=== PATIENT | male | born 1985 | race Caucasian/White ===

== ENCOUNTER 2022-12-19 08:25 | Emergency (ER) | payer OTHER, SELFPAY ==
[2022-12-19 08:38] VITALS: BP 194/118; PULSE 116; TEMP 37; O2SAT 98; BMI 27.9
[2022-12-19] MEDS: cephALEXin 500 MG CAPSULE PO (09:19)
[2022-12-19] MEDS: ACETAMINOPHEN 500 MG TABLET 1000 MG PO (09:19)
[2022-12-19 11:52] VITALS: BP 176/105; PULSE 117; RESP 20; TEMP 36.7; O2SAT 98
--- NOTE | 2022-12-19 11:53 | ED.NURSE ---
Wound dressed with bacitracin, telfa and 4x4s. Dressing supplies sent with pt. [facility] will call pt with appointment time for surgery follow up.
--- NOTE | 2022-12-19 16:11 | ED.SKABFB ---
HPI - Skin/Abscess/Foreign Bdy General Date Seen: 12/19/22 Chief complaint: Skin/Abscess/Foreign Body Stated complaint: Needs cyst on tailbone lanced Time Seen by Provider: 12/19/22 08:27 Source: patient Mode of arrival: ambulatory Limitations: no limitations History of Present Illness HPI narrative: Patient is a very nice 37-year-old gentleman who presents here with the pilonidal cyst, he has had this before, it is before been drained. He has had increasing over the last 3-5 days, although it is not as bad as he normally gets numb. Denies any problems with bowel movements, no redness, no other issues associated with this. He denies a history of immunosuppressive diseases, any allergies. complaint: laceration Onset (ago): day(s) Tetanus up to date: yes Severity: moderate Relieving factors: none Exacerbating factors: none Associated symptoms: denies other symptoms Treatments prior to arrival: none Related Data Home Medications Medication Instructions Recorded Confirmed amlodipine 10 mg tablet mg 12/19/22 lisinopril 40 mg tablet mg 12/19/22 potassium chloride 8 mEq meq 12/19/22 capsule,extended release Allergies Allergy/AdvReac Type Severity Reaction Status Date / Time No Known Drug Allergies Allergy Verified 12/19/22 08:41 Review of Systems Status of ROS: Reports: 10 or more systems reviewed and unremarkable except as noted in History and below PFSH PFS Social History Smoking Status: Never smoker Do you use any of these nicotine containing products: None Second hand tobacco smoke exposure: No How often do you have a drink containing alcohol: 2-3 times a week How many standard drinks containing alcohol do you have on a typical day: 3 or 4 AUDIT-C Alcohol total score: 4 Non-prescribed substance use: denies use Exam Narrative: Exam Narrative: Patient is seen in room 2, no apparent distress, he clearly has a pilonidal cyst on the right side of his gluteal cleft. The scar from previous surgery, I discussed with him, the treatment I would recommend at this point incision drainage and packing, with half-inch regular gauze. 1% xylocaine with epinephrine was infiltrated time 6 mL, this resulted in good anesthesia, cleaned with Hibiclens, I was able to make approximately a cm and half incision, and then I was able to dissect down, to leg at approximately 3-5 mL of pus, little bit less than I thought I would get. And then was packed with some gauze. Bacitracin dry dressing, I did speak to Dr. Matta from General surgery, she will see the patient in follow-up on Sunday, he would likely need a incision, and marsupialization of this in the future. Const: Vital Signs, click to edit/add: Vital Signs - 24 hr 12/19/22 08:38 12/19/22 11:52 Temperature 98.6 F 98.1 F Pulse Rate [Pulse Oximeter] 116 H 117 H Respiratory Rate 20 Blood Pressure [Ri ght Upper Arm] 194/118 H 176/105 H Pulse Oximetry 98 98 Oxygen Delivery Me thod Room Air Documenting provider has reviewed patient's vital signs: yes Course Vital Signs Vital signs: Initial Vital Signs Temperature 98.6 F 12/19/22 08:38 Temperature Source Temporal Artery Scan 12/19/22 08:38 Pulse Rate 116 H 12/19/22 08:38 Blood Pressure 194/118 H 12/19/22 08:38 Blood Pressure Mean 143 12/19/22 08:38 Blood Pressure Position Sitting 12/19/22 08:38 Pulse Oximetry 98 12/19/22 08:38 Oxygen Delivery Method 12/19/22 08:38 Vital Signs Temperature 98.6 F 12/19/22 08:38 Pulse Rate 116 H 12/19/22 08:38 Blood Pressure 194/118 H 12/19/22 08:38 Pulse Oximetry 98 12/19/22 08:38 Oxygen Delivery Method 12/19/22 08:38 Temperature 98.1 F 12/19/22 11:52 Pulse Rate 117 H 12/19/22 11:52 Respiratory Rate 20 12/19/22 11:52 Blood Pressure 176/105 H 12/19/22 11:52 Pulse Oximetry 98 12/19/22 11:52 Oxygen Delivery Method 12/19/22 08:38 Discharge Plan Discharge Clinical Impression: Cyst, pilonidal, with abscess Patient Disposition: Home w/ Parent or Adult Condition: Improved Instructions: Pilonidal Cyst (ED), Sitz Bath (DC), Abscess Follow-up (ED) Additional Instructions: Home rest off work for couple days, Sitz baths at home at least 3-4 times, follow-up with general surgery in 24-48 hours for a recheck. Recommend antibiotics and pain medication, a formal excision will need to be done of this to avoid recurrent issues. Advanced the packing 1 inch a day. Prescriptions: No Action potassium chloride 8 mEq capsule, extended release amlodipine 10 mg tablet lisinopril 40 mg tablet Follow Up/Referrals: Delfina Matta MD [Staff Physician] - Rajan Rodriguez MD [Primary Care Provider] - Destinee Murrieta MD [Staff Physician] - Stand Alone Forms: [employer] Info Instructions
== END 2022-12-19 11:55 | disposition home or self-care (01) ==
PROVIDERS: Emergency Provider Family Medicine; PCP Family Medicine
DX: L05.01 Pilonidal cyst with abscess (principal)
CPT/HCPCS: 10080; 99283; 99284; A9270

== ENCOUNTER 2023-10-18 10:01 | Outpatient (CLI) | payer OTHER, SELFPAY | END 2023-10-18 10:02 | disposition home or self-care (01) | PROVIDERS: PCP Family Medicine; Visit Provider Nurse Practitioner Family | DX: M25.572 Pain in left ankle and joints of left foot (principal); M25.472 Effusion, left ankle | CPT/HCPCS: 84550 ==

== ENCOUNTER 2025-06-13 00:50 | Emergency (ER) | payer OTHER, SELFPAY ==
--- OUTSIDE RECORDS SUMMARY | 2009-01-16 19:00 | XMS_ITS | Continuity of Care Document ---
Author Organization [facility] Address [address] [place] [address] Phone Care Team Providers Care Ground Source Heat Pump Technician Name Role Phone CONV, LCHD Unavailable Unavailable Advance Directives Directive Yes / No Effective Date File Name No Information Encounters Encounter Description Practice Location Reason(s) For Visit Diagnoses Date Provider Providers Copied on Encounter [facility] /[facility], [address] [place] [address], [facility], tel:[phone] Z LCHD CONV No Information CONV LCHD. [address] [place] [address], [facility], . Family History Family Member Type Diagnosis Age At Onset No Information Immunizations Vaccine Date Status Comments DT administered Source: New Imm unization Record ORAL POLIO administered Source: New Imm unization Record DTP administered Source: New Imm unization Record [id number], PED/ADL administered Source: New Immuniza tion Record ORAL POLIO administered Source: New Imm unization Record DTP administered Source: New Imm unization Record DTP administered Source: New Imm unization Record ORAL POLIO administered Source: New Imm unization Record DTP administered Source: New Imm unization Record ORAL POLIO administered Source: New Imm unization Record Payers Payer name Insurance type Covered constitution party ID Authoriza tion(s) No Information Social [...]
--- OUTSIDE RECORDS SUMMARY | 2009-01-16 19:00 | XMS_ITS | Continuity of Care Document ---
Author Organization [facility] Address [address] [place] [address] Phone Care Team Providers Care Human Resources Hr Generalist Name Role Phone CONV, LCHD Unavailable Unavailable Advance Directives Directive Yes / No Effective Date File Name No Information Encounters Encounter Description Practice Location Reason(s) For Visit Diagnoses Date Provider Providers Copied on Encounter [facility] /[facility], [address] [place] [address], [facility], tel:[phone] Z LCHD CONV No Information CONV LCHD. [address] [place] [address], [facility], . Family History Family Member Type Diagnosis Age At Onset No Information Immunizations Vaccine Date Status Comments DT administered Source: New Imm unization Record ORAL POLIO administered Source: New Imm unization Record DTP administered Source: New Imm unization Record [id number], PED/ADL administered Source: New Immuniza tion Record ORAL POLIO administered Source: New Imm unization Record DTP administered Source: New Imm unization Record DTP administered Source: New Imm unization Record ORAL POLIO administered Source: New Imm unization Record DTP administered Source: New Imm unization Record ORAL POLIO administered Source: New Imm unization Record Payers Payer name Insurance type Covered libertarian ID Authoriza tion(s) No Information Social History [...]
[2025-06-13] VITALS (16 sets, daily range): BP systolic 185–225; BP diastolic 118–155; PULSE 110–127; RESP 13–20; TEMP 36.6; O2SAT 97
--- OUTSIDE RECORDS SUMMARY | 2025-06-13 00:53 | XMS_ITS | Clinical Summary ---
Author Organization [facility] Address [address] [place] [address]. [place] [address] Care Team Providers Care Cab Station Attendant Name Role Phone System, Provider Not In Primary Care Provider Un available Allergies No known active allergies Medications HYDROcodone-acet aminophen (NORCO) 5-325 MG tablet Take 1 tablet by mouth every 6 hours as needed for severe pain 20 tablet 04/09/2022 Active Social History Tobacco Use Types Packs/Day Years Used Date Smoking Tobacco: Never Smokeless Tobacco: Current Snuff Alcohol Use Standard Drinks/Week Comments Yes 0 (1 standard drink = 0.6 oz pur e alcohol) social Adolescent Education Answer Date Record ed Getting School Help Needed Not on file 08/11 Sex and Gender Information Value Date Recorded Sex Assigned at Not on file Legal Sex Male 6:41 AM CDT Gender Identity Not on file Sexual Orientation Not on file Last Filed Vital Signs Vital Sign Reading Time Taken Comments Blood Pressure 160/108 04/09/2022 10:30 AM CDT Pulse 77 04/09/2022 10:30 AM CDT Temperature 37.2 C (98.9 F) 04/09/2022 8:49 AM CDT Respiratory Rate 15 04/09/2022 10:30 AM CDT Oxygen Saturation 98% 04/09/2022 10:10 AM CDT Inhaled Oxygen Concentration - - Weight 88.5 kg (195 lb) 04/09/2022 6:48 AM CDT Height 180.3 cm (5' 11) 04/09/2022 6:48 AM CDT Body Mass Index 27.2 04/09/2022 6:48 AM CDT Plan of Treatment Not on file Insurance [id number] [place] [id number] [facility] Care Teams Cab Station Attendant Relationship Specialty Start Date End Date System, Provider Not In PCP - General Clinic 04/09/22
--- OUTSIDE RECORDS SUMMARY | 2025-06-13 00:53 | XMS_ITS | Clinical Summary ---
Author Organization [facility] Address [address] [place] [address] Care Team Providers Care Starting Sheet Tank Operator Name Role Phone Marjorie Nguyen MD Primary Care Provider [phone] Allergies No known active allergies Medications miscellaneous medical supply (Blood Pressure Cuff) miscIndications:P rimary hypertension 1 regular automated blood pressure cuff for home use. 1 Each 2 Active carvediloL (COREG) 12.5 mg tabletIndications :Resistant hypertension Take 1 Tablet (12.5 mg) by mouth two times daily with meals. 60 Tablet 2 4 Active potassium chloride (MICRO-K) 8 mEq Controlled-releas e capsuleIndication s:Primary hypertension TAKE 1 CAPSULE(8 MEQ) BY MOUTH DAILY WITH A MEAL 90 Capsule 4 Active lisinopriL (PRINIVIL; ZESTRIL) 40 mg tabletIndications :Primary hypertension TAKE 1 TABLET(40 MG) BY MOUTH DAILY 90 Tablet 4 Active chlorthalidone (HYGROTON) 25 mg tabletIndications :Primary hypertension TAKE 1/2 TABLET(12.5 MG) BY MOUTH DAILY IN THE MORNING 45 Tablet 4 Active amLODIPine (NORVASC) 10 mg tabletIndications :Primary hypertension TAKE 1 TABLET(10 MG) BY MOUTH DAILY 90 Tablet 4 Active Active Problems Problem Noted Date Diagnosed Date Generalized anxiety disorder 06/28/2021 Tobacco use disorder 06/28/2021 Adjustment disorder with mixed anxiety and depre ssed mood 08/19/2019 Anxiety and depression 10/22/2018 Hyperlipidemia 10/22/2018 Dupuytren's contracture of left hand 11/28/2017 Overweight 10/19/2017 Left ventricular hypertrophy 10/19/2017 HTN (hypertension) 08/15/2017 Resolved Problems Problem Noted Date Diagnosed Date Resolved Date Severe episode of recurrent major depressive disorder, 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/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 Immunizations Immunization Administration Dates Next Due Dtap Unspecified Formulation 01/08/2015 Influenza, IIV4 10/22/2018 Tdap 10/22/2018 Tdap, Unspecified 01/08/2015 Typhoid (injectable) 06/11/2017 Family History Medical History Relation Name Comments No Known Problems Brother x4 Hypertension Father Alcoholism Mother Hypertension Mother No Known Problems Sister x3 Relation Name Status Comments Brother x4 Alive Father Alive Mother Alive Paternal Uncle Guillan-[place] Syndrome Sister x3 Alive Social History Tobacco Use Types Packs/Day Years Used Date Smoking Tobacco: Former Cigarettes Smokeless Tobacco: Never Tobacco Cessation:Counseling Given: Yes Alcohol Use Standard Drinks/Week Comments Yes 0 (1 standard drink = 0.6 oz pur e alcohol) 1-2 drinks 2-3 times/week PHQ-2 Answer Date Recorded PHQ-2 TOTAL SCORE 0 06/16/2022 Social Connections Answer Date Recorded Do you often feel lonely or isolated from those around you? 4 09/25/2023 Alcohol Use Answer Date Recorded How often do you have a drink containing alcohol ? 3 06/28/2021 How many drinks containing a lcohol do you have on a typical day when you are drinking? 0 06/28/2021 How often do you have five or more drinks on one occasion? 1 06/28/2021 Financial Resource Strain Answer Date R ecorded Difficulty of Paying Living Expenses Not on file 09/25/2023 Difficulty of Paying Living Expenses 3 09/25/2023 Food Insecurity Answer Date Recorded Do you worry your food will run out before you are able to buy more? 1 09/25/2023 Transportation Needs Answer Date Record ed Does lack of transportation keep you from medica l appointments? 1 09/25/2023 Does lack of transportation keep you from work, meetings or getting things that you need? 1 09/25/2023 Housing Stability Answer Date Recorded What is your housing situation today? 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 Not on file Not on file Obstetrics History Last Filed Vital Signs Vital Sign Reading Time Taken Comments Blood Pressure 138/88 05/09/2024 4:42 PM CDT Pulse 89 05/09/2024 4:07 PM CDT Temperature 36.8 C (98.3 F) 02/20/2023 3:45 PM CDT Respiratory Rate 16 06/30/2021 8:00 AM CDT Oxygen Saturation 99% 05/09/2024 4:07 PM CDT Inhaled Oxygen Concentration - - Weight 100.7 kg (222 lb) 05/09/2024 4:07 PM CDT Height 180.3 cm (5' 11) 03/21/2023 1:36 PM CDT Body Mass Index 30.96 03/21/2023 1:36 PM CDT Plan of Treatment Health Maintenance Due Date Last Done Comments HIV for age 15-65 1998 Hepatitis C screening for ag e 18-79 2001 Hepatitis B series for 19+ ( 1 of 3 - 19+ 3-dose series) 2002 Pneumococcal series for age 6-49 (1 of 2 - PCV) 2002 Depression screening for age 12+ 06/16/2023 06/16/2022, 06/27/2021, 06/27/2021, Additional history exists BMI (ht and wt on same day) for age 18+ 03/21/2024 03/21/2023, 06/16/2022, 12/10/2020, Additional history exists COVID-19 vaccine series (2 - season) 2024 04/27/2023 Influenza Vaccine (#1) 2025 10/22/2018 Lipids for age 35-44 03/21/2028 03/21/2023, 06/16/2022, 06/28/2021, Additional history exists Tetanus booster 10/22/2028 10/22/2018, 01/08/2015 Procedures Procedure Name Priority Date/Time Associated Diagnosis Comments LIPID PANEL W REFLEX MEASURED LDL Routine 03/21/2023 2:50 PM CDT Pain of toe of left foot from Last 3 Months or Most Recently Relevant to Health Maintenance Results * LIPID PANEL W REFLEX MEASURED LDL (03/21/2023 2:50 PM CDT) CHOLESTEROL,TOTAL 149 mg/dL 023 4:01 AM CDT [facility] Comment: Cholesterol, Total Reference Ranges Desirable <200 mg/dL Borderline 200-239 mg/dL High >=240 mg/dL TRIGLYCERIDES 142 <150 mg/dL 03/22/2023 4:01 AM CDT [facility] HDL CHOLESTEROL 66 >40 mg/dL 4:01 AM CDT [facility] NON-HDL CHOLESTEROL 83 <145 mg/dl 03/22/2023 4:01 AM CDT [facility] CHOL/HDL RATIO 2.26 <4.50 03/22/2023 4:01 AM CDT [facility] LDL CHOLESTEROL 55 <=130 mg/dL 03/22/2023 4:01 AM CDT [facility] VLDL CHOLESTEROL 28 <=30 mg/dL 03/22/2023 4:01 AM CDT [facility] PROVIDER ORDERED STATUS RANDOM 03/22/2023 4:01 AM CDT [facility] Blood BLOOD SPECIMEN / Unknown Venipuncture / Unknown 03/21/2023 2:50 PM CDT 03/21/2023 2:54 PM CDT us Paul Turner MD CHEMISTRY Final Re sult [facility] [address] [place] [address], [place] from Last 3 Months or Most Recently Relevant to Health Maintenance Insurance [facility] Member Subscriber Plan / Payer (Ef fective 2020-Present) Name:Darwin Trinonathan Ruffin Jr. Relation to Subscriber:Employee Name:JULIA ERICKSON Date of :2002 (Home) Address: [place] [address] Payer ID:Not on file Group ID:Not on file Type:Not on file Address: [address] [place] [address] Advance Directives * Full Code (Latest Code Status on File) Date Activated Date Inactivated Comments 06/27/2021 11:57 PM 06/30/2021 1:26 PM Question Answer Comments Code Status Discussion: Per Existing Order Care Teams Starting Sheet Tank Operator Relationship Specialty Start Date End Date Marjorie Nguyen MD [address] [place] [address] PCP - General Family Practice 08/06/19
--- NOTE | 2025-06-13 01:07 | ED.ALCOHOL ---
HPI - Alcohol General Time Seen by Provider: 01:07 Date Seen: 06/13/25 Chief Complaint: Alcohol/Intoxication Stated Complaint: alcohol detox Time Seen by Provider: 06/13/25 01:07 Source: patient and family (Mother) Mode of arrival: ambulatory History of Present Illness HPI narrative: Trino is a 39-year-old male with a past medical history of alcohol use disorder, HTN who presents to the emergency department with his mother for evaluation of alcohol intoxication and concern for alcohol withdrawals. Patient reports longstanding history of alcohol use disorder, reports that recently he was sober for the past 60 days. Patient reports at that time he lost his job, lost insurance, and since then has been drinking daily since mid April. Patient reports drinking approximately a 12 pack of beer every day along with some liquor. Patient reports his last drink was around 1300 yesterday. Patient states the past few days he has not been feeling well. Patient presents tonight with feeling unwell, shakes, not sleeping the past few days, nausea, vomiting, decreased oral intake. Patient denies any suicide ideation, homicide ideation, intent to self-harm. Patient reports depression, recent life stressors which caused him to start drinking heavily daily again. Patient denies any other substance use. No other medical complaints. Patient reports history of high blood pressure however reports he has been off his medications for the past few months since he lost his insurance. Related Data Home Medications ?Medication ?Instructions ?Recorded ?Confirmed amlodipine 10 mg tablet mg 12/19/22 10/18/23 lisinopril 40 mg tablet mg 12/19/22 10/18/23 potassium chloride 8 mEq meq 12/19/22 10/18/23 capsule,extended release carvedilol 12.5 mg tablet 12.5 mg PO BID 10/18/23 10/18/23 Previous Rx's ?Medication ?Instructions ?Recorded colchicine 0.6 mg tablet 0.6 mg PO .COMPLEX #20 tabs 10/18/23 Allergies Allergy/AdvReac Type Severity Reaction Status Date / Time No Known Drug Allergies Allergy Verified 10/18/23 09:33 Review of Systems Narrative Past medical history, past surgical history, medications, allergies, family history, and social history were reviewed with the patient. No additional pertinent items. A medically appropriate review of systems was performed with pertinent positives and negatives noted in HPI, all other systems negative. PFSH PFSH Social History Smoking Status: Never smoker Do you use any of these nicotine containing products: None Second hand tobacco smoke exposure: No How often do you have a drink containing alcohol: 2-3 times a week How many standard drinks containing alcohol do you have on a typical day: 3 or 4 AUDIT-C Alcohol total score: 4 Non-prescribed substance use: denies use Exam Narrative: Exam Narrative: General: Afebrile, in distress HEENT: Normocephalic, atraumatic, conjunctiva normal. MMM Neck: non-tender, supple Cardio: Tachycardic rate. regular rhythm Resp: Normal work of breathing, no respiratory distress, lungs clear bilaterally, no wheezing, rhonchi, rales Chest/Back: no visual signs of trauma, no midline tenderness, no CVA tenderness Abdomen: soft, non distension, no tenderness, no peritoneal signs Neuro: alert and fully oriented. CN II-XII grossly intact. Grossly normal strength and sensation in all extremities, shaking, tremulous MSK: no deformities. Normal range of motion Integumentary/Skin: no rash visualized, normal color Psych: normal affect, normal behavior, denies suicide ideation, homicidal ideation, intent to self-harm Const: Vital Signs, click to edit/add: Vital Signs - 24 hr 06/13/25 00:54 06/13/25 01:08 06/13/25 01:11 Temperature 98 F Pulse Rate 125 H 127 H Pulse Rate [Pulse Oximeter] 127 H Respiratory Rate 16 20 Blood Pressure 203/128 H Blood Pressure [Ri ght Upper Arm] 225/155 H Pulse Oximetry 97 97 97 Oxygen Delivery Me thod Room Air 06/13/25 01:15 06/13/25 01:21 06/13/25 01:30 Temperature Pulse Rate 125 H 125 H 123 H Pulse Rate [Pulse Oximeter] Respiratory Rate 18 18 18 Blood Pressure 205/137 H Blood Pressure [Ri ght Upper Arm] Pulse Oximetry 97 97 97 Oxygen Delivery Me thod 06/13/25 01:42 06/13/25 01:45 06/13/25 02:00 Temperature Pulse Rate 120 H 119 H 114 H Pulse Rate [Pulse Oximeter] Respiratory Rate 17 13 17 Blood Pressure 199/125 H Blood Pressure [Ri ght Upper Arm] Pulse Oximetry 97 97 97 Oxygen Delivery Me thod 06/13/25 02:01 06/13/25 02:15 06/13/25 02:22 Temperature Pulse Rate 121 H 117 H Pulse Rate [Pulse Oximeter] Respiratory Rate 19 18 18 Blood Pressure 191/118 H 198/127 H Blood Pressure [Ri ght Upper Arm] Pulse Oximetry 97 97 Oxygen Delivery Me thod 06/13/25 02:32 06/13/25 02:41 06/13/25 02:45 Temperature Pulse Rate 110 H 112 H 117 H Pulse Rate [Pulse Oximeter] Respiratory Rate 18 18 18 Blood Pressure 185/134 H Blood Pressure [Ri ght Upper Arm] Pulse Oximetry 97 97 97 Oxygen Delivery Me thod 06/13/25 03:00 Temperature Pulse Rate 110 H Pulse Rate [Pulse Oximeter] Respiratory Rate 18 Blood Pressure Blood Pressure [Ri ght Upper Arm] Pulse Oximetry 97 Oxygen Delivery Me thod Course Vital Signs Vital signs: Initial Vital Signs Temperature 98 F 06/13/25 00:54 Temperature Source Temporal Artery Scan 06/13/25 00:54 Pulse Rate 127 H 06/13/25 00:54 Respiratory Rate 16 06/13/25 00:54 Blood Pressure 225/155 H 06/13/25 00:54 Blood Pressure Mean 178 H 06/13/25 00:54 Blood Pressure Position Sitting 06/13/25 00:54 Pulse Oximetry 97 06/13/25 00:54 Oxygen Delivery Method Room Air 06/13/25 00:54 Vital Signs Temperature 98 F 06/13/25 00:54 Pulse Rate 127 H 06/13/25 00:54 Respiratory Rate 16 06/13/25 00:54 Blood Pressure 225/155 H 06/13/25 00:54 Pulse Oximetry 97 06/13/25 00:54 Oxygen Delivery Method Room Air 06/13/25 00:54 Temperature 98 F 06/13/25 00:54 Pulse Rate 110 H 06/13/25 03:00 Respiratory Rate 18 06/13/25 03:00 Blood Pressure 185/134 H 06/13/25 02:41 Pulse Oximetry 97 06/13/25 03:00 Oxygen Delivery Method Room Air 06/13/25 00:54 Medications Administered Medications: Generic Name Dose Route Start Last Admin Trade Name Freq PRN Reason Stop Dose Admin Lorazepam 1 - 4 mg 06/13/25 02:16 06/13/25 02:21 Lorazepam 1 Mg Tablet PO 2 mg Q1H PRN Administration Protocol Discontinued Medications Generic Name Dose Route Start Last Admin Trade Name Lakia PRN Reason Stop Dose Admin Sodium Chloride 1,000 mls @ 1,000 mls/hr 06/13/25 01:30 06/13/25 02:22 0.9 % Sodium Chloride 1000 Ml IV 06/13/25 02:29 Infused .Q1H MADAI Infusion Lorazepam 2 mg 06/13/25 01:24 06/13/25 01:18 Lorazepam 1 Mg Tablet PO 06/13/25 01:25 2 mg ONCE ONE Administration MDM - Alcohol MDM Narrative Medical decision making narrative: Trino is a 39-year-old male with a past medical history of alcohol use disorder, HTN who presents to the emergency department with his mother for evaluation of alcohol intoxication and concern for alcohol withdrawals. Upon arrival patient is ill but nontoxic appearing, afebrile, in distress. Patient hypertensive upon arrival with blood pressure 225/155 with repeat 203/128, tachycardic with a heart rate of 127, oxygen 97% on room air. Patient with a history of alcohol use disorder, recently daily drinking, now with acute alcohol withdrawals. Initial CIWA scale upon arrival was 17. Patient was treated with 2 mg of oral Ativan. Patient denies any suicide ideation, homicide ideation. I discussed with patient and asked if he is interested in detox. At this time patient would like to feel better hopefully go home with mom until he can figure out his insurance. Plan for comprehensive labs, 1 L IV fluid bolus, re-evaluation, final disposition. I reviewed comprehensive labs which are remarkable for no leukocytosis white blood cell count 8.6, hemoglobin 17.3, no acute metabolic or electrolyte abnormality, normal lipase, slight elevation in liver function tests with AST 66, ALT 60, normal bilirubin, alcohol level less than 0.01. Patient placed on CIWA protocol, initial CIWA assessment 17, repeat was 10, patient with improvement of blood pressure and tachycardia. Additional doses of oral Ativan given. Patient continues resting comfortably with significant improvement of symptoms. Repeat CIWA 2. I did rediscuss with patient and mother, and did offer inpatient treatment/detox however patient declined. Patient would like to go home with his mom. Resources provided. Mother reports difficulty sleeping due to anxiety, depression, recently with a setting where he lost his job. I discussed with patient and will discharge home with a short course of hydroxyzine to take as needed at bedtime. Encouraged close outpatient follow-up with a primary care provider for ongoing management, and resources with his alcohol use disorder as well as getting back on his antihypertensive agents, and depression. Patient and mom understand agree the plan. Strict return precautions discussed. Medical Records Attestation: I reviewed the patient's medical records. Lab Data Attestation: I reviewed the patient's lab results. Labs: Lab Results 06/13/25 06/13/25 Range/Units 01:09 01:24 WBC 8.62 (4.50-11.00) K/uL RBC 5.63 (4.30-5.90) m/uL Hgb 17.3 (13.5-17.5) gm/dL Hct 49.0 (37.0-53.0) % MCV 87 (80-100) fL MCH 31 (26-34) pg MCHC 35 (32-36) gm/dL RDW Coeff of [place] 12.9 (11.5-15.5) % Plt Count 270 (140-440) K/uL Neut % (Auto) 57.0 (42.0-72.0) % Lymph % (Auto) 26.8 (20-44) % [place] % (Auto) 15.0 H (0.0-11.0) % Eos % (Auto) 0.6 (0.0-7.0) % Baso % (Auto) 0.3 (0.0-3.0) % Neut # (Auto) 4.91 (1.7-7.0) K/uL Lymph # (Auto) 2.31 (0.90-2.90) K/uL [place] # (Auto) 1.30 H (0.00-0.90) K/UL Eos # (Auto) 0.05 (0.00-0.50) K/uL Baso # (Auto) 0.03 (0.00-0.30) K/uL Abs Immat Gran (auto) 0.03 (0.00-0.30) K/uL Imm/Tot Granulo (auto) 0.3 % Sodium 135 (135-149) mmol/L Potassium 3.6 (3.6-5.1) mmol/L Chloride 100 (96-114) mmol/L Carbon Dioxide 26 (20-32) mmol/L Anion Gap 9 (7-15) mEq/L BUN 18 (5-24) mg/dL Creatinine 1.0 (0.5-1.5) mg/dL Estimated Creat Clear 103.54 Estimated GFR 97 ml/min Glucose 108 (60-115) mg/dL Calcium 9.1 (8.4-10.6) mg/dL Magnesium 1.9 (1.5-2.6) mg/dL Total Bilirubin 0.7 (0.1-1.5) mg/dL AST 66 H (12-35) U/L ALT 60 H (4-50) U/L Alkaline Phosphatase 74 (40-150) U/L Total Protein 7.6 (6.0-8.3) g/dL Albumin 4.3 (3.3-5.0) g/dL Lipase 117 (23-300) U/L Ethyl Alcohol < 0.01 (0.01-0.03) % Discharge Plan Discharge Clinical Impression: Alcohol use disorder, Alcohol withdrawal syndrome Patient Disposition: Home, Self-Care Condition: Improved Instructions: Alcohol Withdrawal (DC) Additional Instructions: Please follow-up with your primary care provider in the next 2-3 days for further evaluation and follow-up. Please call to schedule appointment. Recommend close outpatient follow-up to get restarted on your blood pressure medications as well as ongoing support and resources for alcohol use disorder, alcohol withdrawals. Please rest, drink plenty of fluids. Please take hydroxyzine 1-2 tablets at bedtime as needed to help with anxiety. Please return to the emergency department if he develops any worsening symptoms. It was a pleasure taking care of you today. We hope you feel better soon. Prescriptions: No Action carvedilol 12.5 mg tablet 12.5 mg PO BID colchicine 0.6 mg tablet 0.6 mg PO .COMPLEX Qty: 20 0RF Rx Instructions: Take 1.2 mg (2 tabs) right away. Take 0.6mg (one tab) one hour later. Total dose on the first day of therapy of 1.8 mg. Take one tab every 12 hours thereafter until 48 hours after resolution of the pain/swelling. potassium chloride 8 mEq capsule, extended release amlodipine 10 mg tablet lisinopril 40 mg tablet Follow Up/Referrals: Rajan Rodriguez MD [Staff Physician, Family Practice] Stand Alone Forms: [employer] Info Instructions
[2025-06-13 01:36] LABS: Hematocrit 49.0 % (37.0-53.0); Hemoglobin* 17.3 gm/dL (13.5-17.5); Immature Granulocytes Abs Auto 0.03 K/uL (0.00-0.30); Immature Granulocytes Pct Auto 0.3 %; Lymphocytes Absolute Auto 2.31 K/uL (0.90-2.90); Mean Corpuscular HGB Conc 35 gm/dL (32-36); Mean Corpuscular Hemoglobin 31 pg (26-34); Mean Corpuscular Volume 87 fL (80-100); RDW Coefficient of Variation % 12.9 % (11.5-15.5); Red Blood Count 5.63 m/uL (4.30-5.90); White Blood Count* 8.62 K/uL (4.50-11.00)
[2025-06-13 01:47] LABS: Slide Review Reflex No
[2025-06-13 01:50] LABS: Albumin* 4.3 g/dL (3.3-5.0); Chloride* 100 mmol/L (96-114); Potassium* 3.6 mmol/L (3.6-5.1); Sodium* 135 mmol/L (135-149)
[2025-06-13 01:52] LABS: Alanine Aminotransferase* 60 U/L (4-50); Aspartate Amino Transferase* 66 U/L (12-35); Blood Urea Nitrogen* 18 mg/dL (5-24); Creatinine* 1.0 mg/dL (0.5-1.5); Est. Creatinine Clearance* 103.54; Estimated Glomerular Filt Rate 97 ml/min
[2025-06-13 01:53] LABS: Alkaline Phosphatase* 74 U/L (40-150); Anion Gap 9 mEq/L (7-15); Bilirubin Total* 0.7 mg/dL (0.1-1.5); Calcium* 9.1 mg/dL (8.4-10.6); Carbon Dioxide* 26 mmol/L (20-32); Glucose* 108 mg/dL (60-115); Total Protein* 7.6 g/dL (6.0-8.3)
[2025-06-13 02:09] LABS: Ethanol* < 0.01 % (0.01-0.03)
== END 2025-06-13 03:52 | disposition home or self-care (01) ==
PROVIDERS: Emergency Provider Emergency Medicine; PCP Family Medicine
DX: R56.9 Unspecified convulsions (principal); F10.239 Alcohol dependence with withdrawal, unspecified; I10 Essential (primary) hypertension
CPT/HCPCS: 36415; 80053; 82077; 83690; 83735; 85025; 99285; 99291; A9270; J7030

== ENCOUNTER 2025-06-16 08:20 | Outpatient (CLI) | payer OTHER, SELFPAY | END 2025-06-16 08:21 | disposition home or self-care (01) | LOC: AMB 06-22 14:42 | PROVIDERS: PCP Family Medicine; Visit Provider Family Medicine | DX: R56.9 Unspecified convulsions (principal); I10 Essential (primary) hypertension | CPT/HCPCS: A0425; A0427 ==

== ENCOUNTER 2025-06-16 08:48 | Emergency (ER) | payer OTHER, SELFPAY ==
--- OUTSIDE RECORDS SUMMARY | 2009-01-16 19:00 | XMS_ITS | Continuity of Care Document ---
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 [address] [place] [address], [facility], . Family History Family Member Type Diagnosis Age At Onset No Information Immunizations Vaccine Date Status Comments DT administered Source: New Imm unization Record ORAL POLIO administered Source: New Imm unization Record DTP administered Source: New Imm unization Record [id number], PED/ADL administered Source: New Immuniza tion Record ORAL POLIO administered Source: New Imm unization Record DTP administered Source: New Imm unization Record DTP administered Source: New Imm unization Record ORAL POLIO administered Source: New Imm unization Record DTP administered Source: New Imm unization Record ORAL POLIO administered Source: New Imm unization Record Payers Payer name Insurance type Covered green party ID Authoriza tion(s) No Information Social History Type Description Quantity Date Captured Comments Sex Male Smoking Status No Information Chief Complaint And Reason For Visit No Information History Of Present Illness Encounter Date Complaint History Of Prese nt Illness No Information Instructions Date Instruction Additional Infor mation No Information Assessments Type Assessment Date No Information Patient Care Teams Name Effective Dates (start - stop) Status Members No Information
--- OUTSIDE RECORDS SUMMARY | 2009-01-16 19:00 | XMS_ITS | Continuity of Care Document ---
Author Organization [facility] Address [address] [place] [address] Phone Care Team Providers Care Non Ferrous Material Handler Name Role Phone CONV, LCHD Unavailable Unavailable Advance Directives Directive Yes / No Effective Date File Name No Information Encounters Encounter Description Practice Location Reason(s) For Visit Diagnoses Date Provider Providers Copied on Encounter [facility] /[facility], [address] [place] [address], [facility], tel:[phone] Z LCHD CONV No Information CONV [facility]CHD. [address] [place] [address], [facility], . Family History Family Member Type Diagnosis Age At Onset No Information Immunizations Vaccine Date Status Comments DT administered Source: New Imm unization Record ORAL POLIO administered Source: New Imm unization Record DTP administered Source: New Imm unization Record [id number], PED/ADL administered Source: New Immuniza tion Record ORAL POLIO administered Source: New Imm unization Record DTP administered Source: New Imm unization Record DTP administered Source: New Imm unization Record ORAL POLIO administered Source: New Imm unization Record DTP administered Source: New Imm unization Record ORAL POLIO administered Source: New Imm unization Record Payers Payer name Insurance type Covered alliance party ID Authoriza tion(s) No Information Social [...]
[2025-06-16] VITALS (24 sets, daily range): BP systolic 193–242; BP diastolic 130–142; PULSE 99–138; RESP 12–32; TEMP 36.6; O2SAT 18–98
--- OUTSIDE RECORDS SUMMARY | 2025-06-16 08:50 | XMS_ITS | Clinical Summary ---
Author Organization [facility] Address [address] [place] [address]. [place] [address] Care Team Providers Care Heavy Duty Custodian Name Role Phone System, Provider Not In [...] Plan of Treatment Not on file Insurance [id number] [place] [id number] [facility] PROGRESSIVE Care Teams Heavy Duty Custodian Relationship Specialty Start Date End Date System, Provider Not In PCP - General Clinic 04/09/22
--- OUTSIDE RECORDS SUMMARY | 2025-06-16 08:51 | XMS_ITS | Clinical Summary ---
Author Organization [facility] Address [address] [place] [id number] Care Team Providers Care Senior Interior Designer Name Role Phone Marjorie Nguyen MD Primary Care Provider [phone] Allergies No known active allergies Medications miscellaneous [...] Alive Father Alive Mother Alive Paternal Uncle Guillan-Edison Syndrome Sister x3 Alive Social History Tobacco [...] Industry Job Start Date Job End Date [employer]PER[employer] Not on file Not on file Not [...] CHOLESTEROL,TOTAL 149 mg/dL 023 4:01 AM CDT [facility] Comment: Cholesterol, Total Reference Ranges Desirable <200 mg/dL Borderline 200-239 mg/dL High >=240 mg/dL TRIGLYCERIDES 142 <150 mg/dL 03/22/2023 4:01 AM CDT [facility] HDL CHOLESTEROL 66 >40 mg/dL 4:01 AM CDT [facility] NON-HDL CHOLESTEROL 83 <145 mg/dl 03/22/2023 4:01 AM CDT [facility] CHOL/HDL RATIO 2.26 <4.50 03/22/2023 4:01 AM CDT [facility] LDL CHOLESTEROL 55 <=130 mg/dL 03/22/2023 4:01 AM CDT [facility] VLDL CHOLESTEROL 28 <=30 mg/dL 03/22/2023 4:01 AM CDT [facility] PROVIDER ORDERED STATUS RANDOM 03/22/2023 4:01 AM CDT [facility] Blood BLOOD SPECIMEN / Unknown Venipuncture / Unknown 03/21/2023 2:50 PM CDT 03/21/2023 2:54 PM CDT us Paul Turner MD CHEMISTRY Final Re sult [facility] [address] [place] [address], [place] from Last 3 Months or Most Recently Relevant to Health Maintenance Insurance [facility] Member Subscriber Plan / Payer (Ef fective 2020-Present) Name:Darwin Trinonathan Ruffin Jr. Relation to Subscriber:Employee Name:JULIA ERICKSON Date of :2002 (Home) Address: [place] [address] Payer ID:Not on file Group ID:Not on file Type:Not on file Address: [address] [facility] [id number] [place] [address] Advance Directives * Full Code (Latest Code Status on File) Date Activated Date Inactivated Comments 06/27/2021 11:57 PM 06/30/2021 1:26 PM Question Answer Comments Code Status Discussion: Per Existing Order Care Teams Senior Interior Designer Relationship Specialty Start Date End Date Marjorie Nguyen MD [address] [facility] [place] [address] PCP - General Family Practice 08/06/19
--- NOTE | 2025-06-16 08:54 | ED_ITS ---
HPI - General Adult General Chief complaint: Seizure Stated complaint: Seizure Time Seen by Provider: 06/16/25 08:49 History of Present Illness HPI narrative: Patient's mother called EMS after she witness about a 2-3 minute seizure. EMS report postictal confusion though patient is alert and orientated on arrival. Was seen in this ED on Sunday for uncomplicated withdrawal. Patient denies previous issues with withdrawal but reports previous seizures that began in childhood but was taken off medications as hasn't had one in a long time . Patient also reports hypertension that he has not been taking his prescribed medications for some time. endorses a lot of anxiety but denies nausea, headache, hallucinations and no tremors. Seizure precaution in place. 39-year-old man presenting to the emergency department following a seizure witnessed this morning by his mother. Sounds like it was a full-body seizure. 3 minutes. EMS arrived and noted Mr. Granados to be postictal. He is quite alert at this point but admits that he is not feeling quite right. Fuzzy or foggy. No complaint of headache. Blood pressure is noted be rather elevated on arrival. Has not taken his blood pressure meds in a while. Last seen in the emergency department 3 days ago with alcohol intoxication and concern of withdrawal. Was offered assistance with detox but wanted to go home. Given hydroxyzine upon discharge. Has still been 4 days now since his last drink. Is feeling quite anxious. Has been having the shakes primary withdrawal symptom. Does have a more remote history of seizure disorder. Had been discontinued on management till of [facility]. Last seizure probably was about 2010 he thinks. Related Data Home Medications ?Medication ?Instructions ?Recorded ?Confirmed amlodipine 10 mg tablet mg 12/19/22 10/18/23 lisinopril 40 mg tablet mg 12/19/22 10/18/23 potassium chloride 8 mEq meq 12/19/22 10/18/23 capsule,extended release carvedilol 12.5 mg tablet 12.5 mg PO BID 10/18/2309/21 Previous Rx's ?Medication ?Instructions ?Recorded colchicine 0.6 mg tablet 0.6 mg PO .COMPLEX #20 tabs 10/18/23 amlodipine 10 mg tablet 10 mg PO DAILY #30 tabs 05/20 08/13 chlorthalidone 12.5 mg tablet 12.5 mg PO DAILY #30 tab s 06/16/25 lisinopril 20 mg tablet 20 mg PO DAILY #30 tabs 05/20 08/13 lorazepam 1 mg tablet 1 mg PO TID PRN 06/16/25 Agitation/anxiety/withdrawal symptoms #10 tabs potassium chloride 8 mEq 8 meq PO DAILY #30 tabs 05/20 08/13 tablet,extended release Allergies Allergy/AdvReac Type Severity Reaction Status Date / Time No Known Drug Allergies Allergy Verified 06/16/25 08:57 Review of Systems Status of ROS: Reports: 6 or more systems reviewed and unremarkable except as noted in History and below PFSH PFS Social History Smoking Status: Never smoker Do you use any of these nicotine containing products: None Second hand tobacco smoke exposure: No How often do you have a drink containing alcohol: 2-3 times a week How many standard drinks containing alcohol do you have on a typical day: 3 or 4 AUDIT-C Alcohol total score: 4 Non-prescribed substance use: denies use Non-prescribed substance use details: Patient reports last drink on Sunday Exam Narrative: Exam Narrative: Pleasant. NAD. Head is atraumatic. Cranial nerves 2-12 are intact. Pupils are 3 mm and equal. Face lungs are clear. Heart in elevated rate and regular rhythm. Abdomen is overweight soft and nontender. Moving all extremities fluidly. No indication of injury. No lower extremity edema. Oropharynx is without indication of injury. Const: Vital Signs, click to edit/add: Vital Signs - 24 hr 06/16/25 08:57 06/16/25 08:57 06/16/25 09:00 Temperature 97.8 F Pulse Rate 138 H 136 H Pulse Rate [Pulse Oximeter] 138 H Respiratory Rate 20 Blood Pressure Blood Pressure [Le ft Arm] Blood Pressure [Le ft Upper Arm] 218/135 H Pulse Oximetry 18 L 96 91 Oxygen Delivery Me thod Room Air 06/16/25 09:15 06/16/25 09:23 06/16/25 09:30 Temperature Pulse Rate 135 H 130 H 128 H Pulse Rate [Pulse Oximeter] Respiratory Rate 16 Blood Pressure 229/142 H Blood Pressure [Le ft Arm] Blood Pressure [Le ft Upper Arm] Pulse Oximetry 94 94 95 Oxygen Delivery Me thod 06/16/25 09:38 06/16/25 09:41 06/16/25 09:42 Temperature 98 F Pulse Rate 128 H 128 H Pulse Rate [Pulse Oximeter] 128 H Respiratory Rate 22 17 19 Blood Pressure 242/141 H Blood Pressure [Le ft Arm] 229/142 H Blood Pressure [Le ft Upper Arm] Pulse Oximetry 98 96 96 Oxygen Delivery Me thod Room Air 06/16/25 09:45 06/16/25 10:01 06/16/25 10:02 Temperature Pulse Rate 129 H 121 H 121 H Pulse Rate [Pulse Oximeter] Respiratory Rate 12 17 18 Blood Pressure 239/141 H Blood Pressure [Le ft Arm] Blood Pressure [Le ft Upper Arm] Pulse Oximetry 96 95 97 Oxygen Delivery Me thod 06/16/25 10:03 06/16/25 10:15 06/16/25 10:19 Temperature Pulse Rate 122 H 119 H 120 H Pulse Rate [Pulse Oximeter] Respiratory Rate 17 16 Blood Pressure 217/136 H Blood Pressure [Le ft Arm] Blood Pressure [Le ft Upper Arm] Pulse Oximetry 96 97 95 Oxygen Delivery Me thod 06/16/25 10:25 06/16/25 10:30 06/16/25 10:42 Temperature Pulse Rate 122 H 118 H 106 H Pulse Rate [Pulse Oximeter] Respiratory Rate 19 15 12 Blood Pressure 200/138 H Blood Pressure [Le ft Arm] Blood Pressure [Le ft Upper Arm] Pulse Oximetry 98 96 95 Oxygen Delivery Me thod 06/16/25 10:43 06/16/25 10:45 06/16/25 11:00 Temperature Pulse Rate 102 H 99 103 H Pulse Rate [Pulse Oximeter] Respiratory Rate 23 22 Blood Pressure Blood Pressure [Le ft Arm] Blood Pressure [Le ft Upper Arm] Pulse Oximetry 97 96 97 Oxygen Delivery Me thod 06/16/25 11:02 06/16/25 11:15 06/16/25 11:22 Temperature Pulse Rate 106 H 107 H 108 H Pulse Rate [Pulse Oximeter] Respiratory Rate 32 H 16 19 Blood Pressure 195/130 H 193/132 H Blood Pressure [Le ft Arm] Blood Pressure [Le ft Upper Arm] Pulse Oximetry 97 96 95 Oxygen Delivery Me thod 06/16/25 11:30 Temperature Pulse Rate 112 H Pulse Rate [Pulse Oximeter] Respiratory Rate 17 Blood Pressure Blood Pressure [Le ft Arm] Blood Pressure [Le ft Upper Arm] Pulse Oximetry 95 Oxygen Delivery Me thod Documenting provider has reviewed patient's vital signs: yes Course Vital Signs Vital signs: Initial Vital Signs Temperature 97.8 F 06/16/25 08:57 Temperature Source Temporal Artery Scan 06/16/25 08:57 Pulse Rate 138 H 06/16/25 08:57 Pulse Rhythm Regular 06/16/25 08:57 Respiratory Rate 20 06/16/25 08:57 Blood Pressure 218/135 H 06/16/25 08:57 Blood Pressure Mean 162 H 06/16/25 08:57 Pulse Oximetry 18 L 06/16/25 08:57 Oxygen Delivery Method Room Air 06/16/25 08:57 Vital Signs Temperature 97.8 F 06/16/25 08:57 Pulse Rate 138 H 06/16/25 08:57 Respiratory Rate 20 06/16/25 08:57 Blood Pressure 218/135 H 06/16/25 08:57 Pulse Oximetry 18 L 06/16/25 08:57 Oxygen Delivery Method Room Air 06/16/25 08:57 Temperature 98 F 06/16/25 09:38 Pulse Rate 112 H 06/16/25 11:30 Respiratory Rate 17 06/16/25 11:30 Blood Pressure 193/132 H 06/16/25 11:22 Pulse Oximetry 95 06/16/25 11:30 Oxygen Delivery Method Room Air 06/16/25 09:38 Medications Administered Medications: Discontinued Medications Generic Name Dose Route Start Last Admin Trade Name Freq PRN Reason Stop Dose Admin Acetaminophen 1,000 mg 06/16/25 10:41 06/16/25 10:49 Acetaminophen 500 Mg Tablet PO 06/16/25 10:42 1,000 mg ONCE ONE Administration Amlodipine Besylate 10 mg 06/16/25 09:45 06/16/25 09:52 Amlodipine 10 Mg Tablet PO 06/16/25 09:46 10 mg DAILY ONE Administration Sodium Chloride 1,000 mls @ 1,000 mls/hr 06/16/25 08:58 06/16/25 10:21 0.9 % Sodium Chloride 1000 Ml IV 06/16/25 09:57 Infused .Q1H ONE Infusion Lorazepam 2 mg 06/16/25 08:58 06/16/25 09:09 Lorazepam 1 Mg Tablet PO 06/16/25 08:59 2 mg ONCE ONE Administration Metoprolol Tartrate 5 mg 06/16/25 10:28 06/16/25 10:38 Metoprolol Tartrate 1 Mg/Ml Inj IVP 06/16/25 10:29 5 mg ONCE ONE Administration Medical Decision Making MDM Narrative Medical decision making narrative: Would initiate fluid resuscitation. Can certainly give some Ativan in the short term. Unclear whether not this seizure is related to underlying seizure disorders reported or withdrawal. There does not appear to have sustained head injury. Was given lorazepam and IV fluids. Monitored on surveillance monitor. Blood pressures were elevated. Has been off medication. Most quickly acting of what he has is amlodipine. Given a dose of amlodipine. Also given dosing of metoprolol as continued to be tachycardic. Did appear to tolerate IV test does of metoprolol. Labs are reassuring. I did discuss this case with Neurology on-call. Not recommending return to antiepileptic. CIWAs are reassuring and I think that these seizure is less likely related to withdrawal although possibly triggered by mild withdrawal symptoms in the setting of someone with underlying epilepsy. Does have hydroxyzine which has been helpful for symptoms of anxiety but does not sound like has been taking this regularly either. As far as alcohol use, Mr. Granados hopes to yet make his meeting today. See patient discharge plan for further discussion Best wishes in your continued efforts at sobriety. Would like you to restart your blood pressure medications. Maybe not quite full doses though. I have sent in prescriptions for them. Will start with the lisinopril, potassium, amlodipine, chlorthalidone. Can continue with the Vistaril (hydroxyzine) as prescribed and needed. I understand you will be starting a multivitamin. Please schedule follow-up for about a for 7-10 days from now with primary care. -[id number]- Mention that this is an emergency department follow-up. Neurology would also like you to check in with them. There are a few Neurology groups locally. Referencing this emergency department visit, you could follow- up with [facility] or with [place] [facility] Medical Records Medical records reviewed: Yes I reviewed the patient's medical records Lab Data Lab results reviewed: Yes I reviewed the patient's lab results Labs: Lab Results 06/16/25 Range/Units 09:15 WBC 8.47 (4.50-11.00) K/uL RBC 5.30 (4.30-5.90) m/uL Hgb 16.3 (13.5-17.5) gm/dL Hct 46.2 (37.0-53.0) % MCV 87 (80-100) fL MCH 31 (26-34) pg MCHC 35 (32-36) gm/dL RDW Coeff of [place] 13.1 (11.5-15.5) % Plt Count 202 (140-440) K/uL Neut % (Auto) 70.5 (42.0-72.0) % Lymph % (Auto) 17.4 L (20-44) % [place] % (Auto) 7.9 (0.0-11.0) % Eos % (Auto) 2.0 (0.0-7.0) % Baso % (Auto) 0.4 (0.0-3.0) % Neut # (Auto) 5.98 (1.7-7.0) K/uL Lymph # (Auto) 1.50 (0.90-2.90) K/uL [place] # (Auto) 0.70 (0.00-0.90) K/UL Eos # (Auto) 0.17 (0.00-0.50) K/uL Baso # (Auto) 0.03 (0.00-0.30) K/uL Abs Immat Gran (auto) 0.15 (0.00-0.30) K/uL Imm/Tot Granulo (auto) 1.8 % Sodium 137 (135-149) mmol/L Potassium 3.8 (3.6-5.1) mmol/L Chloride 102 (96-114) mmol/L Carbon Dioxide 24 (20-32) mmol/L Anion Gap 11 (7-15) mEq/L BUN 10 (5-24) mg/dL Creatinine 0.9 (0.5-1.5) mg/dL Estimated Creat Clear 115.04 Estimated GFR 110 ml/min Glucose 152 H (60-115) mg/dL Lactate 3.9 H (0.5-1.9) mmol/L Calcium 9.4 (8.4-10.6) mg/dL Total Creatine Kinase 53 L (54-186) U/L Ethyl Alcohol < 0.01 (0.01-0.03) % Critical Care Time Critical Care Time Total Critical Care Time in Minutes: 40 Discharge Plan Discharge Clinical Impression: Seizure, Seizure disorder, Alcohol withdrawal, High blood pressure Patient Disposition: Home w/ Parent or Adult Condition: Improved Additional Instructions: Best wishes in your continued efforts at sobriety. Would like you to restart your blood pressure medications. Maybe not quite full doses though. I have sent in prescriptions for them. Will start with the lisinopril, potassium, amlodipine, chlorthalidone. Can continue with the Vistaril (hydroxyzine) as prescribed and needed. I understand you will be starting a multivitamin. Please schedule follow-up for about a for 7-10 days from now with primary care. -[id number]- Mention that this is an emergency department follow-up. Neurology would also like you to check in with them. There are a few Neurology groups locally. Referencing this emergency department visit, you could follow- up with [facility] or with [place] [facility] Prescriptions: New amlodipine 10 mg tablet 10 mg PO DAILY Qty: 30 0RF lisinopril 20 mg tablet 20 mg PO DAILY Qty: 30 0RF potassium chloride 8 mEq tablet extended release 8 meq PO DAILY Qty: 30 0RF lorazepam 1 mg tablet 1 mg PO TID PRN (Reason: Agitation/anxiety/withdrawal symptoms) Qty: 10 0RF chlorthalidone 12.5 mg tablet 12.5 mg PO DAILY Qty: 30 0RF No Action carvedilol 12.5 mg tablet 12.5 mg PO BID colchicine 0.6 mg tablet 0.6 mg PO .COMPLEX Qty: 20 0RF Rx Instructions: Take 1.2 mg (2 tabs) right away. Take 0.6mg (one tab) one hour later. Total dose on the first day of therapy of 1.8 mg. Take one tab every 12 hours thereafter until 48 hours after resolution of the pain/swelling. potassium chloride 8 mEq capsule, extended release amlodipine 10 mg tablet lisinopril 40 mg tablet Follow Up/Referrals: Marjorie Nguyen MD [Primary Care Provider, [facility]] Stand Alone Forms: [employer] Info Instructions
[2025-06-16 09:23] LABS: Hematocrit 46.2 % (37.0-53.0); Hemoglobin* 16.3 gm/dL (13.5-17.5); Immature Granulocytes Abs Auto 0.15 K/uL (0.00-0.30); Immature Granulocytes Pct Auto 1.8 %; Lactate* 3.9 mmol/L (0.5-1.9); Mean Corpuscular HGB Conc 35 gm/dL (32-36); Mean Corpuscular Hemoglobin 31 pg (26-34); Mean Corpuscular Volume 87 fL (80-100); RDW Coefficient of Variation % 13.1 % (11.5-15.5); Red Blood Count 5.30 m/uL (4.30-5.90); White Blood Count* 8.47 K/uL (4.50-11.00)
[2025-06-16 09:25] LABS: Lymphocytes Absolute Auto 1.50 K/uL (0.90-2.90); Slide Review Reflex No
[2025-06-16 09:48] LABS: Chloride* 102 mmol/L (96-114); Potassium* 3.8 mmol/L (3.6-5.1); Sodium* 137 mmol/L (135-149)
[2025-06-16 09:50] LABS: Blood Urea Nitrogen* 10 mg/dL (5-24)
[2025-06-16 09:51] LABS: Anion Gap 11 mEq/L (7-15); Calcium* 9.4 mg/dL (8.4-10.6); Carbon Dioxide* 24 mmol/L (20-32); Creatine Kinase* 53 U/L (54-186); Creatinine* 0.9 mg/dL (0.5-1.5); Est. Creatinine Clearance* 115.04; Estimated Glomerular Filt Rate 110 ml/min; Glucose* 152 mg/dL (60-115)
[2025-06-16] MEDS: AMLODIPINE 10 MG TABLET PO (09:52)
[2025-06-16 09:58] LABS: Ethanol* < 0.01 % (0.01-0.03)
[2025-06-16] MEDS: METOPROLOL TARTRATE 1 MG/ML inj 5 MG IVP (10:38)
[2025-06-16] MEDS: ACETAMINOPHEN 500 MG TABLET 1000 MG PO (10:49)
== END 2025-06-16 11:49 | disposition home or self-care (01) ==
PROVIDERS: Emergency Provider Family Medicine; PCP Family Medicine
DX: G40.909 Epilepsy, unspecified, not intractable, without status epilepticus (principal); F10.239 Alcohol dependence with withdrawal, unspecified; R03.0 Elevated blood-pressure reading, without diagnosis of hypertension; Z79.899 Other long term (current) drug therapy
CPT/HCPCS: 36415; 80048; 82077; 82550; 83605; 85025; 96361; 96374; 99284; A9270; J7030